=== PATIENT | female | born 1945 | race Caucasian/White ===

== ENCOUNTER 2020-01-03 09:21 | Outpatient (REF) | payer MEDICARE, OTHER, SELFPAY ==
[2020-01-03 11:53] LABS: Alanine Aminotransferase 22 U/L (0-31); Aspartate Amino Transferase 25 U/L (5-31); Cholesterol 250 mg/dL; HDL Cholesterol 74 mg/dL; LDL Cholesterol Calculated 166 mg/dl; Triglycerides 53 mg/dL
== END 2020-01-03 09:22 | disposition home or self-care (01) ==
LOC: HO.HMGCLDS 09:21
PROVIDERS: PCP Internal Medicine; Visit Provider Internal Medicine
DX: E78.5 Hyperlipidemia, unspecified (principal); M85.80 Other specified disorders of bone density and structure, unspecified site
CPT/HCPCS: 80061; 82550; 84450; 84460

== ENCOUNTER 2020-05-03 08:13 | Outpatient (REF) | payer MEDICARE, OTHER, SELFPAY ==
[2020-05-03 11:59] LABS: Alanine Aminotransferase 22 U/L (0-31); Aspartate Amino Transferase 26 U/L (5-31); Cholesterol 209 mg/dL; HDL Cholesterol 72 mg/dL; LDL Cholesterol Calculated 128 mg/dl; Triglycerides 45 mg/dL
== END 2020-05-03 08:14 | disposition home or self-care (01) ==
LOC: HO.HMGCLDS 08:13
PROVIDERS: PCP Internal Medicine; Visit Provider Internal Medicine
DX: E78.5 Hyperlipidemia, unspecified (principal)
CPT/HCPCS: 36415; 80061; 82550; 84450; 84460

== ENCOUNTER 2020-07-19 10:11 | Outpatient (REF) | payer MEDICARE, OTHER, SELFPAY ==
--- NOTE | ~2020-07-19 | MM_ITS ---
EXAMINATION: BONE DENSITOMETRY CLINICAL INDICATION: Other specified disorders of bone density and structure, unspecified site. COMPARISON: Baseline BD dated 01/30/2015. TECHNIQUE: Using a [employer] DXA System (software version: 13.1) manufactured by [employer], dual-energy x-ray absorptiometry was performed of the lumbar spine and left hip. The images are of good technical quality. Summary results are attached. FINDINGS: AP SPINE L1-L4: Current: BMD 1.200 g/cm2, Z-score 2.3, T-score 0.2, normal, 3.8% decrease from baseline (<5% change is not significant). Baseline: BMD 1.248 g/cm2. LEFT FEMUR, NECK: Current: BMD 0.714 g/cm2, Z-score -0.1, T-score -2.3, osteopenia. Baseline: BMD 0.728 g/cm2. LEFT FEMUR, TOTAL: Current: BMD 0.859 g/cm2, Z-score 0.9, T-score -1.2, osteopenia, 3.4% decrease from baseline (<5% change is not significant). Baseline: BMD 0.889 g/cm2. IDENTIFIED RISK FACTORS: Height loss, menopause. HISTORY OF FRACTURE: None listed. MEDICATIONS: Vitamin D. MM/XR DEXA axial skeleton IMPRESSION: 1. DIAGNOSIS: Osteopenia based on the lowest T-score value of -2.3 in the femoral neck applying World Health Organization criteria. 2. 10-YEAR FRACTURE RISK PREDICTION, FRAX: Major osteoporotic fracture (clinical spine, forearm, hip or shoulder) 15.2%. Hip fracture 4.7%. 3. Treatment Recommendations: NOF guidelines recommend consideration for treatment in postmenopausal women and men age 50 and older presenting with the following: -A hip or vertebral (clinical or morphometric) fracture. -T-score less than or equal to -2.5 at the femoral neck or spine after appropriate evaluation to exclude secondary causes. -Low bone mass at the hip or spine and a 10-year fracture probability by FRAX of greater than or equal to 3% for hip fracture or greater than or equal to 20% for major osteoporotic fracture based on the [place] adapted WHO algorithm. 4. Other Recommendations: All treatment decisions require clinical judgment and consideration of individual patient factors, including patient preferences, comorbidities, previous drug use, risk factors not captured in the FRAX model (e.g. frailty, falls, vitamin D deficiency, increased bone turnover, interval significant decline in bone density) and possible under or overestimation of fracture risk by FRAX. Additional medical evaluation for secondary cause of low bone mineral density may be appropriate. FUTURE SCAN RECOMMENDATION: People with diagnosed cases of osteoporosis or at high risk for fracture should have regular bone mineral density tests. For patients eligible for Medicare, routine testing is allowed once every 2 years. The testing frequency can be increased to one year for patients who have rapidly progressing disease, those who are receiving or discontinuing medical therapy to restore bone mass, or have additional risk factors.
--- NOTE | ~2020-07-19 | MM_ITS ---
EXAMINATION: MM SCREENING DIGITAL BREAST TOMOSYNTHESIS, BILATERAL CLINICAL INFORMATION: Screening. Asymptomatic. The lifetime risk of breast cancer based on the Tyrer-Cuzick Model is 5%. COMPARISON: Mammography: 05/11/2019, 03/01/2018, 04/28/2016 TECHNIQUE: Digital breast tomosynthesis is performed in both the craniocaudal and mediolateral oblique views along with computer-aided detection (CAD). Synthesized 2D images are generated from the tomosynthesis. Additional left MLO view is provided. FINDINGS: The breasts are heterogeneously dense, which may obscure small masses (ACR BI-RADS breast composition Category c). There are no significant masses, abnormal calcifications, or other abnormalities. Parenchymal pattern is similar to prior studies. No significant changes. MM/MM tomosynthesis screening BI IMPRESSION: No mammographic evidence of malignancy. ASSESSMENT: BI-RADS 1: Negative RECOMMENDATION: Routine annual mammography screening. This patient's information was entered into a reminder system with a target due date for their next mammogram.
== END 2020-07-19 10:12 | disposition home or self-care (01) ==
LOC: HO.MAMMO 10:11
PROVIDERS: PCP Internal Medicine; Visit Provider Internal Medicine
DX: Z13.820 Encounter for screening for osteoporosis (principal); Z78.0 Asymptomatic menopausal state; Z12.31 Encounter for screening mammogram for malignant neoplasm of breast
CPT/HCPCS: 77063; 77067; 77080

== ENCOUNTER 2021-01-01 08:31 | Outpatient (REF) | payer MEDICARE, OTHER, SELFPAY ==
[2021-01-01 11:47] LABS: Alanine Aminotransferase 23 U/L (0-31); Anion Gap 12 (12-20); Aspartate Amino Transferase 30 U/L (5-31); Blood Urea Nitrogen 13 mg/dL (9-16); Calcium 9.8 mg/dL (8.4-10.2); Carbon Dioxide 29 mmol/L (22-29); Chloride 103 mmol/L (96-108); Cholesterol 261 mg/dL; Estimated Glomerular Filt Rate 60; Glucose Fasting 109 mg/dL (60-99); HDL Cholesterol 66 mg/dL; LDL Cholesterol Calculated 182 mg/dl; Potassium 4.3 mmol/L (3.3-5.1); Sodium 140 mmol/L (135-145); Triglycerides 66 mg/dL
[2021-01-01 12:03] LABS: Vitamin D 25-OH Total 45.5 ng/mL (>30)
== END 2021-01-01 08:32 | disposition home or self-care (01) ==
LOC: HO.HMGCLDS 08:31
PROVIDERS: PCP Internal Medicine; Visit Provider Internal Medicine
DX: E78.5 Hyperlipidemia, unspecified (principal); M85.80 Other specified disorders of bone density and structure, unspecified site; I10 Essential (primary) hypertension
CPT/HCPCS: 36415; 80048; 80061; 82306; 84450; 84460

== ENCOUNTER 2021-04-09 09:15 | Outpatient (REF) | payer MEDICARE, OTHER, SELFPAY ==
[2021-04-09 11:46] LABS: Estimated Average Glucose 120 mg/dL; Hemoglobin A1C 149.8151 umol/L; Hemoglobin A1c % 5.8 %
[2021-04-09 12:20] LABS: Alanine Aminotransferase 21 U/L (0-31); Aspartate Amino Transferase 25 U/L (5-31); Cholesterol 308 mg/dL; Glucose Fasting 96 mg/dL (60-99); HDL Cholesterol 67 mg/dL; LDL Cholesterol Calculated 228 mg/dl; Triglycerides 67 mg/dL
== END 2021-04-09 09:16 | disposition home or self-care (01) ==
LOC: HO.HMGCLDS 09:15
PROVIDERS: Visit Provider Internal Medicine
DX: E78.5 Hyperlipidemia, unspecified (principal)
CPT/HCPCS: 36415; 80061; 82947; 83036; 84450; 84460

== ENCOUNTER 2021-07-11 09:52 | Outpatient (REF) | payer MEDICARE, OTHER, SELFPAY ==
[2021-07-11 12:31] LABS: Alanine Aminotransferase 46 U/L (0-31); Aspartate Amino Transferase 35 U/L (5-31); Cholesterol 158 mg/dL; HDL Cholesterol 56 mg/dL; LDL Cholesterol Calculated 88 mg/dl; Triglycerides 72 mg/dL
== END 2021-07-11 09:53 | disposition home or self-care (01) ==
LOC: HO.HMGCLDS 09:52
PROVIDERS: PCP Internal Medicine; Visit Provider Internal Medicine
DX: E78.5 Hyperlipidemia, unspecified (principal)
CPT/HCPCS: 36415; 80061; 82550; 84450; 84460

== ENCOUNTER 2021-07-25 10:05 | Outpatient (REF) | payer MEDICARE, OTHER, SELFPAY ==
--- NOTE | ~2021-07-25 | MM_ITS ---
EXAMINATION: MM SCREENING DIGITAL BREAST TOMOSYNTHESIS, BILATERAL CLINICAL INFORMATION: Screening. Asymptomatic. The lifetime risk of breast cancer based on the Tyrer-Cuzick Model is 5.1%. COMPARISON: Mammography: July 19, 2020 and studies dating back to January 19, 2014 TECHNIQUE: Digital breast tomosynthesis is performed in both the craniocaudal and mediolateral oblique views along with computer-aided detection (CAD). Synthesized 2D images are generated from the tomosynthesis. FINDINGS: The breasts are extremely dense, which lowers the sensitivity of mammography (ACR BI-RADS breast composition Category d). There are no significant masses, abnormal calcifications, or other abnormalities. MM/MM tomosynthesis screening BI IMPRESSION: There are no significant changes from prior study. ASSESSMENT: BI-RADS 1: Negative RECOMMENDATION: Routine annual mammography screening. This patient's information was entered into a reminder system with a target due date for their next mammogram.
== END 2021-07-25 10:06 | disposition home or self-care (01) ==
LOC: HO.MAMMO 10:05
PROVIDERS: PCP Internal Medicine; Visit Provider Internal Medicine
DX: Z12.31 Encounter for screening mammogram for malignant neoplasm of breast (principal)
CPT/HCPCS: 77063; 77067

== ENCOUNTER 2022-01-27 09:33 | Outpatient (REF) | payer MEDICARE, OTHER, SELFPAY ==
[2022-01-27 11:51] LABS: Alanine Aminotransferase 29 U/L (0-31); Aspartate Amino Transferase 32 U/L (5-31); Cholesterol 209 mg/dL; HDL Cholesterol 75 mg/dL; LDL Cholesterol Calculated 125 mg/dl; Triglycerides 45 mg/dL
== END 2022-01-27 09:34 | disposition home or self-care (01) ==
LOC: HO.LAB 09:33
PROVIDERS: PCP Internal Medicine; Visit Provider Internal Medicine
DX: E78.5 Hyperlipidemia, unspecified (principal)
CPT/HCPCS: 36415; 80061; 84450; 84460

== ENCOUNTER 2022-10-28 11:38 | Outpatient (AMB) | payer MEDICARE, OTHER, SELFPAY ==
--- NOTE | 2022-10-28 11:54 | A.OFFPC_ITS ---
Vital Signs 10/28/22 12:03 Height 5 ft Weight 125 lb BMI 24.4 BP 122/64 Blood Pressure Location Rt brachial Position Sitting Pulse 68 Pulse Source Pulse Oximeter Pulse Oximetry (%) 99 Intake Visit Reasons: 6 Month follow up: do mini mental Intake Note: Pt is here today for her 6 months f/u: Do mini mental Accompanied by: Daughter Allergies azithromycin Allergy (Unknown, Verified 06/10/23 02:43) rash erythromycin base [Erythromycin Base] Allergy (Unknown, Verified 06/10/23 02:43) RASH levofloxacin Allergy (Unknown, Verified 06/10/23 02:43) pruritis, achiness alprazolam [Xanax] Adverse Reaction (Unknown, Verified 06/10/23 02:43) ringing in ears red yeast rice Adverse Reaction (Unknown, Uncoded 06/10/23 02:43) muscle pain statins Adverse Reaction (Unknown, Uncoded 06/10/23 02:43) muscle pain Medication List - Last Reconciled 10/28/22 by Katiuska Vargas MD atorvastatin 10 mg PO BEDTIME cholecalciferol (vitamin D3) 50 mcg PO DAILY zinc 50 mg PO DAILY Tobacco use date assessed: 10/28/22 Fall risk assessment: No Falls in past year Last assessed Fall Risk: 10/28/22 Dental Screening Dental Screen Date: 10/28/22 Did you have a dental visit in the last 12 months?: Yes Did you have a dental problem in the last 6 months where you did not have access to dental care?: No Was dental information given to patient?: Patient has dentist HPI 6 Month follow up: do mini mental HPI Details 78-year-old lady with hyperlipidemia cur rently on atorvastatin 10 mg daily, here today for her follow-up. She is accompanied by her daughter, who is concerned that patient's mentation and memory seems to be declining. She finds her mother to be repetitive at times. Patient still drives, lives in her own home, and does all her household worker. [facility] Medical History Osteopenia after menopause Lyme disease Dyslipidemia Surgical History No pertinent past surgical history Family History Father Medical history non-contributory Mother Medical history non-contributory Social History Housing: Condominium Alcohol intake: never Patient Tobacco Use Status: Never used Tobacco e-Cigarette/Vaping Use: Never Used Current occupational status: retired Cognitive needs: No Hearing needs: No Vision needs: Yes Questionnaire PHQ-9 Over the last 2 weeks, how often have you been bothered by any of the following problems? 1. Little interest or pleasure in doing things: not at all 2. Feeling down, depressed, or hopeless: not at all 3. Trouble falling or staying asleep, or sleeping too much: not at all 4. Feeling tired or having little energy: not at all 5. Poor appetite or overeating: not at all 6. Feeling bad about yourself - or that you are a failure or have let yourself or your family down: not at all 7. Trouble concentrating on things, such as reading the newspaper or watching television: not at all 8. Moving or speaking so slowly that other people could have noticed. Or the opposite - being so fidgety or restless that you have been moving around a lot more than usual: several days 9. Thoughts that you would be better off or of hurting yourself in some way: not at all Total score: 1 Depression Screening Interpretation: Negative Source: Developed by Drs. Arthur Mallory, Morena Lopez, Chung Betancur and colleagues, with an educational quirino from [employer]. Thrive Questionnaire Date Thrive assessed: 10/28/22 I am a: Patient What is your living situation today?: I have a steady place to live Within the past 12 months, did the food you bought not last and you didn't have the money to get more?: Never true Within the past 12 months, did you worry whether your food would run out before you got money to buy more?: Never true Do you have trouble paying for medicines?: No Do you have trouble getting transportation to medical appointments?: No Do you have trouble paying your heating and electricity bill?: No Do you have trouble taking care of your child, family member or friend?: No Do you have trouble with day-to-day activities such as bathing, preparing meals, shopping, managing finances, etc.?: No Are you currently unemployed and looking for a job?: No Are you interested in more education?: No AUDIT C Alcohol Use Questionnaire (AUDIT-C) 1. How often do you have a drink containing alcohol?: Never Total Score: 0 MARINA-7 AMB Questionnaire MARINA-7 Date MARINA - 7 assessed: 10/28/22 Feeling nervous, anxious, or on edge: 1 = Several days Not being able to stop or control worryin = Several days Worrying too much about different things: 1 = Several days Trouble relaxin = Not at all Being so restless that it is hard to sit still: 0 = Not at all Becoming easily annoyed or irritable: 0 = Not at all Feeling afraid as if something awful might happen: 0 = Not at all Total MARINA-7 score (0-4 normal; 5-9 mild; 10-14 moderate; 15-21 severe): 3 Source: Developed by Drs. Arthur Mallory, Morena Lopez, Chung Betancur and colleagues, with an educational quirino from [employer]. MARINA-7 Assessment Billing MARINA-7 Assessment Tool: MARINA-7 Assessment 19118 Review of Systems Const Denies fatigue, Denies headache(s), Reports increased appetite, Denies lethargy, Denies malaise and Denies weakness ENT Denies headache(s) Card Denies chest pain, Denies irregular heart rhythm, Denies claudication and Denies dyspnea on exertion Resp Denies chest congestion, Denies cough and Denies dyspnea on exertion GI Reports no additional complaints Musc Denies back pain, Denies myalgias, Denies arthralgias, Denies muscle cramps, Denies muscle weakness, Denies numbness and Denies stiffness Neuro Denies Abnormal speech present, Reports behavioral changes, Denies confusion, Denies headache(s), Denies numbness, Denies seizure-like activity and Denies weakness Psych Reports behavioral changes and Denies confusion Endo Denies fatigue Vikram/Lymph Reports no additional complaints Aller/Immun Reports no additional complaints Physical exam (Primary Care) Vital Signs: Last Vital Signs Pulse 68 10/28/22 12:03 BP 122/64 10/28/22 12:03 Pulse Ox 99 10/28/22 12:03 BMI result Body Mass Index 24.4 Tobacco/Smoking Status: Tobacco use Status Tobacco use date assessed 10/28/22 10/28/22 12:07 Patient Tobacco Use Status Never used Tobacco 10/28/22 11:55 e-Cigarette/Vaping Use Never Used 10/28/22 11:55 Depression Screening Interpretation: Negative Thrive Assessment: Date of Thrive Assessment Date Thrive assessed 04/11/21 10/28/22 11:55 Const General: No confusion Orientation/consciousness: No confusion Limitations: no limitations Eyes General: appearance normal, both eyes and all related structures Pupils: Equal, round and reactive pupils present Neck Neck: Yes full ROM, Yes no lymphadenopathy and Yes supple Resp Effort & Inspection: normal respiratory effort and able to speak in complete sentences Auscultation: clear to auscultation bilaterally Cardio Rate: regular rate Rhythm: regular rhythm Heart sounds: S1 normal heart sound present and S2 normal heart sound present GI Palpation (GI): Soft to palpation, nontender and no masses Auscultation: normal bowel sounds Back/Spine/Pelvis Back: No back tenderness Skin General skin exam: no rashes or lesions noted Neuro General: No confusion Cranial nerves: Yes CN's II-XII intact bilaterally and Yes Equal, round and reactive pupils present Cognition (Neuro): normal cognition Speech: No Abnormal speech present Extrem General: Yes full ROM, Yes no joint enlargement, Yes no clubbing, cyanosis or edema and Yes no calf tenderness Psych Appearance: grossly normal and well kempt Mental Status: mental status grossly normal Speech and movement: Psychomotor agitation in speech present Affect: normal affect Attitude: cooperative Thought process: Normal thought process present Results Reviewed Results Reviewed: Scored 29/30 in MMSE done on this visit, copy of results in chart Assessment and Plan Assessment & Plan (1) Dyslipidemia: Code(s): E78.5 - Hyperlipidemia, unspecified Plan: Fasting lipid panel ordered today, in the meantime continue with atorvastatin 10 mg daily in addition to following a low-cholesterol diet and getting regular exercise. (2) Osteopenia after menopause: Code(s): M85.80 - Other specified disorders of bone density and structure, unspecified site Plan: Reinforced importance of doing regular weight-bearing exercise in addition to taking adequate calcium from dietary sources and continue to take vitamin-D 3 at least 2000 units daily. Repear vitamin-D level ordered Orders: Orders Alanine Aminotransferase 10/28/22 E78.5 - Hyperlipidemia, unspecified, M85.80 - Other specified disorders of bone density and structure, unspecified site Aspartate Amino Transferase 10/28/22 E78.5 - Hyperlipidemia, unspecified, M85.80 - Other specified disorders of bone density and structure, unspecified site Vitamin D 25-OH Total 10/28/22 E78.5 - Hyperlipidemia, unspecified, M85.80 - Other specified disorders of bone density and structure, unspecified site Lipid Panel 10/28/22 E78.5 - Hyperlipidemia, unspecified, M85.80 - Other specified disorders of bone density and structure, unspecified site Medications: Refilled atorvastatin 10 mg PO BEDTIME 90 tabs 3RF Coding Level of Care Code Est Pt Level 4 (96910) Diagnoses Dyslipidemia E78.5 Osteopenia after menopause M85.80 Additional Codes MARINA-7 Assessment Billing - MARINA-7 Assessment Tool: MARINA-7 Assessment 71225 ([id number])
[2022-10-28 12:03] VITALS: BP 122/64; PULSE 68; O2SAT 99; BMI 24.4
== END 2022-10-28 14:36 | disposition home or self-care (01) ==
PROVIDERS: PCP Internal Medicine; Visit Provider Internal Medicine
DX: E78.5 Hyperlipidemia, unspecified (principal); M85.80 Other specified disorders of bone density and structure, unspecified site
CPT/HCPCS: 99214

== ENCOUNTER 2022-11-04 08:39 | Outpatient (REF) | payer MEDICARE, OTHER, SELFPAY ==
--- NOTE | ~2022-11-04 | MM_ITS ---
EXAMINATION: MM SCREENING DIGITAL BREAST TOMOSYNTHESIS, BILATERAL CLINICAL INFORMATION: Screening. Asymptomatic. COMPARISON: Mammography: 07/25/2021, 07/19/2020, 05/11/2019, and dating back to 2013. TECHNIQUE: Digital breast tomosynthesis is performed in both the craniocaudal and mediolateral oblique views along with computer-aided detection (CAD). Synthesized 2D images are generated from the tomosynthesis. FINDINGS: The breasts are extremely dense, which lowers the sensitivity of mammography (ACR BI-RADS breast composition Category d). There are a few scattered benign dermal calcifications. In the left breast, upper quadrant, there is a 1 view MLO asymmetry without definite correlate on the CC projection although suspected laterally, likely hidden among extremely dense breast tissue. Recommend diagnostic views to include 3-D spot compression CC and MLO views, as well as a 3-D full-field mediolateral view. There are no suspicious findings in the right breast. MM/MM tomosynthesis screening BI IMPRESSION: Left breast one view MLO asymmetry superior aspect without definite correlate as detailed. Recommend diagnostic views as described above. Ultrasound should also be scheduled at the discretion of the reading radiologist. ASSESSMENT: BI-RADS BI-RADS 0 - Incomplete: Needs additional Imaging. RECOMMENDATION: 1. Additional views of the left breast. 2. Targeted ultrasound if warranted after review of the additional views. 3. Radiology department staff will contact the patient for additional imaging. Additional Imaging required This examination should not preclude the clinical evaluation of a suspicious palpable abnormality. This patient's information was entered into a reminder system with a target due date for their next mammogram.
== END 2022-11-04 08:40 | disposition home or self-care (01) ==
LOC: HO.MAMMO 08:39
PROVIDERS: PCP Internal Medicine; Visit Provider Internal Medicine
DX: Z12.31 Encounter for screening mammogram for malignant neoplasm of breast (principal)
CPT/HCPCS: 77063; 77067

== ENCOUNTER → 2022-11-04 09:30 | Outpatient (BNV) | payer MEDICARE, OTHER, SELFPAY | PROVIDERS: PCP Internal Medicine; Visit Provider Radiology Diagnostic Radiology | DX: Z12.31 Encounter for screening mammogram for malignant neoplasm of breast (principal) | CPT/HCPCS: 77063; 77067 ==

== ENCOUNTER 2022-11-24 09:56 | Outpatient (REF) | payer MEDICARE, OTHER, SELFPAY ==
[2022-11-24 13:44] LABS: Alanine Aminotransferase 13 U/L (0-31); Aspartate Amino Transferase 20 U/L (5-31); Cholesterol 171 mg/dL (<200); HDL Cholesterol 59 mg/dL (>40); LDL Cholesterol Calculated 102 mg/dL (<100); Triglycerides 53 mg/dL (<150)
[2022-11-24 13:59] LABS: Vitamin D 25-OH Total 79.7 ng/mL (>30)
== END 2022-11-24 09:57 | disposition home or self-care (01) ==
LOC: HO.HMGCLDS 09:56
PROVIDERS: PCP Internal Medicine; Visit Provider Internal Medicine
DX: Z13.89 Encounter for screening for other disorder (principal)
CPT/HCPCS: 36415; 80061; 82306; 84450; 84460

== ENCOUNTER 2022-11-24 12:55 | Outpatient (REF) | payer MEDICARE, OTHER, SELFPAY ==
--- NOTE | ~2022-11-24 | MM_ITS ---
EXAMINATION: MM DIAGNOSTIC DIGITAL BREAST TOMOSYNTHESIS, LEFT CLINICAL INFORMATION: Follow-up diagnostic for one view asymmetry seen superior left breast on MLO view only. COMPARISON: Mammography: 11/04/2022, 07/25/2021, and dating back to 2016. TECHNIQUE: Digital breast tomosynthesis is performed. 2D images are generated from the tomosynthesis. The following views are obtained: Full-field 3-D left mediolateral view, 3-D spot compression left MLO and left CC views. FINDINGS: The breasts are almost entirely fatty (ACR BI-RADS breast composition Category a). Additional views demonstrate no persistent mass, architectural abnormality, or suspicious calcifications. The one view asymmetry previously seen is consistent with summation artifact of overlapping normal dense breast tissues. There are no findings suspicious for malignancy. MM/MM tomosynthesis added views L IMPRESSION: No mammographic evidence of malignancy. No persistent abnormalities. Recommend the patient resume routine annual screening. ASSESSMENT: BI-RADS BI-RADS 1 - Negative RECOMMENDATION: 1 year F/U Results were discussed with the patient at time of visit. This patient's information was entered into a reminder system with a target due date for their next mammogram.
== END 2022-11-24 12:56 | disposition home or self-care (01) ==
LOC: HO.MAMMO 12:55
PROVIDERS: PCP Internal Medicine; Visit Provider Internal Medicine
DX: N64.89 Other specified disorders of breast (principal); E78.5 Hyperlipidemia, unspecified; M85.80 Other specified disorders of bone density and structure, unspecified site
CPT/HCPCS: 36415; 77061; 77065; 80061; 82306; 84450; 84460

== ENCOUNTER 2023-04-29 11:34 | Outpatient (AMB) | payer MEDICARE, OTHER, SELFPAY ==
--- NOTE | 2023-04-29 11:44 | A.OFFPC_ITS ---
Vital Signs 04/29/23 11:45 Height 5 ft Weight 111 lb BMI 21.7 BP 122/70 Blood Pressure Location Rt brachial Position Sitting Pulse 68 Pulse Source Pulse Oximeter Pulse Oximetry (%) 98 Oxygen Delivery Method Room Air Intake Visit Reasons: Annual PE Intake Note: Pt is here today for PE. Last mammogram 11/24/22, bone density scan 07/19/20 Allergies azithromycin Allergy (Unknown, Verified 06/10/23 02:43) rash erythromycin base [Erythromycin Base] Allergy (Unknown, Verified 06/10/23 02:43) RASH levofloxacin Allergy (Unknown, Verified 06/10/23 02:43) pruritis, achiness alprazolam [Xanax] Adverse Reaction (Unknown, Verified 06/10/23 02:43) ringing in ears red yeast rice Adverse Reaction (Unknown, Uncoded 06/10/23 02:43) muscle pain statins Adverse Reaction (Unknown, Uncoded 06/10/23 02:43) muscle pain Medication List - Last Reconciled 06/11/23 by Katiuska Vargas MD atorvastatin 10 mg PO BEDTIME cholecalciferol (vitamin D3) 50 mcg PO DAILY zinc 50 mg PO DAILY Tobacco use date assessed: 04/29/23 HPI Annual PE HPI Details 78-year-old lady here today for physical exam. She has hyperlipidemia and osteopenia, currently taking atorvastatin 10 mg at bedtime and takes vitamin-D 3 supplements. Her last bone density scan was done 07/19/2020 which s howed presence of normal bone density in lumbar spine but presence of osteopenia in left femoral neck and left femur, unchanged from previous test. No history of fractures. Last mammogram was done October 2022, with normal findings. She is up-to-date with all her vaccines, but unsure whether she received her 2nd dose of shingles vaccine, will check with her pharmacist peer [facility] Medical History Osteopenia after menopause Lyme disease Dyslipidemia Surgical History No pertinent past surgical history Family History Father Medical history non-contributory Mother Medical history non-contributory Social History Housing: Condominium Alcohol intake: never Patient Tobacco Use Status: Never used Tobacco e-Cigarette/Vaping Use: Never Used Current occupational status: retired Cognitive needs: No Hearing needs: No Vision needs: Yes Questionnaire PHQ-9 Over the last 2 weeks, how often have you been bothered by any of the following problems? 1. Little interest or pleasure in doing things: not at all 2. Feeling down, depressed, or hopeless: not at all 3. Trouble falling or staying asleep, or sleeping too much: several days 4. Feeling tired or having little energy: not at all 5. Poor appetite or overeating: not at all 6. Feeling bad about yourself - or that you are a failure or have let yourself or your family down: not at all 7. Trouble concentrating on things, such as reading the newspaper or watching television: not at all 8. Moving or speaking so slowly that other people could have noticed. Or the opposite - being so fidgety or restless that you have been moving around a lot more than usual: several days 9. Thoughts that you would be better off or of hurting yourself in some way: not at all Total score: 2 Depression Screening Interpretation: Negative Depression Screening Done: Yes 55820 - PHQ-9 Billing: Yes Source: Developed by Drs. Arthur Mallory, Morena Lopez, Chung Betancur and colleagues, with an educational quirino from [employer]. Thrive Questionnaire Date Thrive assessed: 04/29/23 I am a: Patient What is your living situation today?: I have a steady place to live Within the past 12 months, did the food you bought not last and you didn't have the money to get more?: Never true Within the past 12 months, did you worry whether your food would run out before you got money to buy more?: Never true Do you have trouble paying for medicines?: No Do you have trouble getting transportation to medical appointments?: No Do you have trouble paying your heating and electricity bill?: No Do you have trouble taking care of your child, family member or friend?: No Do you have trouble with day-to-day activities such as bathing, preparing meals, shopping, managing finances, etc.?: No Are you currently unemployed and looking for a job?: No Are you interested in more education?: No THRIVE Score: 0 AUDIT C Alcohol Use Questionnaire (AUDIT-C) 1. How often do you have a drink containing alcohol?: Never Total Score: 0 MARINA-7 AMB Questionnaire MARINA-7 Date MARINA - 7 assessed: 04/29/23 Feeling nervous, anxious, or on edge: 1 = Several days Not being able to stop or control worryin = Several days Worrying too much about different things: 0 = Not at all Trouble relaxin = Not at all Being so restless that it is hard to sit still: 0 = Not at all Becoming easily annoyed or irritable: 0 = Not at all Feeling afraid as if something awful might happen: 0 = Not at all Total MARINA-7 score (0-4 normal; 5-9 mild; 10-14 moderate; 15-21 severe): 2 Source: Developed by Drs. Arthur Mallory, Morena Lopez, Chung Betancur and colleagues, with an educational quirino from [employer]. MARINA-7 Assessment Billing MARINA-7 Assessment Tool: MARINA-7 Assessment 39686 Review of Systems Const Denies fatigue, Denies headache(s), Denies malaise and Denies weakness Eyes Denies change in vision ENT Denies headache(s) and Reports hearing loss (Both ears) Card Denies chest pain, Denies irregular heart rhythm, Denies claudication and Denies dyspnea on exertion Resp Denies chest congestion, Denies cough and Denies dyspnea on exertion GI Reports no additional complaints Reports no additional complaints Musc Denies back pain, Denies myalgias, Denies arthralgias, Denies muscle cramps, Denies muscle weakness, Denies numbness and Denies stiffness Skin/Breast Denies breast swelling, Denies breast pain, Denies breast mass and Denies new lesions Neuro Denies Abnormal speech present, Denies confusion, Denies headache(s), Denies numbness, Denies seizure-like activity and Denies weakness Psych Denies confusion Endo Denies fatigue Vikram/Lymph Reports no additional complaints Aller/Immun Reports no additional complaints Physical exam (Primary Care) Vital Signs: Last Vital Signs Pulse 68 02/28/24 11:45 BP 122/70 04/29/23 11:45 Pulse Ox 98 04/29/23 11:45 Oxygen Delivery Method Room Air 04/29/23 11:45 BMI result Body Mass Index 21.7 Tobacco/Smoking Status: Tobacco use Status Tobacco use date assessed 04/29/23 04/29/23 11:55 Patient Tobacco Use Status Never used Tobacco 04/29/23 11:45 e-Cigarette/Vaping Use Never Used 04/29/23 11:45 PHQ-9: PHQ-9 Score PHQ-9: Total score 9 06/11/23 01:30 Depression Screening Interpretation: Negative Thrive Assessment: Date of Thrive Assessment Date Thrive assessed 04/29/23 04/29/23 12:53 Const General: No confusion Orientation/consciousness: No confusion HENMT Head: Yes normocephalic Ears: external ears normal, TM's normal bilaterally and EAC's normal General nose exam: Normal external nose present Face and sinus: Yes face symmetric Mouth: Normal oral and palatal mucosa present, oropharynx normal and moist mucous membranes Eyes General: appearance normal, both eyes and all related structures Neck Neck: Yes full ROM, Yes no lymphadenopathy and Yes supple Chest Breast/axilla palpation: normal palpation of the breasts Resp Effort & Inspection: normal respiratory effort and able to speak in complete sentences Auscultation: clear to auscultation bilaterally Cardio Rate: regular rate Rhythm: regular rhythm Heart sounds: S1 normal heart sound present and S2 normal heart sound present GI Palpation (GI): Soft to palpation, nontender and no masses Auscultation: normal bowel sounds Back/Spine/Pelvis Back: No back tenderness Skin General skin exam: no rashes or lesions noted Neuro General: No confusion Cranial nerves: Yes CN's II-XII intact bilaterally Cognition (Neuro): normal cognition Speech: No Abnormal speech present Extrem General: Yes full ROM, Yes no joint enlargement, Yes no clubbing, cyanosis or edema and Yes no calf tenderness Psych Appearance: grossly normal and well kempt Mental Status: mental status grossly normal Speech and movement: Psychomotor agitation in speech present Affect: normal affect Immunizations pneumoc 20-elvira conj-dip cr(PF) 0.5 mL IM syringe Performing Provider: Katiuska Vargas MD Performing Location: [facility] Administered by: Cathy Astudillo CMA on 04/29/23 13:00 Dose Route Admin Location Dispensed Lot Number Expiration Date [employer] 0.5 mL IM Left Deltoid 0.5 mL [id number] 04/29/24 4717-1631-46 [employer] VIS Given Date VIS Provided VIS Publication Date 04/29/23 Single Vaccine 21 Eligibility Eligibility Date Funding Source Not [facility] Eligible 04/29/23 Private Assessment and Plan Assessment & Plan (1) Annual visit for general adult medical examination with abnormal findings: Code(s): Z00.01 - Encounter for general adult medical examination with abnormal findings Plan: Will check appropriate labs. Continue with regular dental visit every 6 months and regular eye exams, at least every 2 years. Take adequate calcium in diet and vitamin-D 3 at 2000 IU per cap once a day, in addition to weight-bearing exercises to help maintain good muscle tone and weight control. Instructed to do self-breast exam, and recommended to get yearly mammogram, declines getting bone density scan. Has last bone density scan was in 2020. Up-to-date with vaccine, Prevnar 20 given today (2) Dyslipidemia: Code(s): E78.5 - Hyperlipidemia, unspecified Plan: Fasting lipid panel ordered. Continued on atorvastatin 10 mg daily, in addition to adherence to healthy eating habits and regular exercise. (3) Osteopenia after menopause: Code(s): M85.80 - Other specified disorders of bone density and structure, unspecified site Plan: Ordered basic metabolic panel, vitamin-D level,. Encouraged to do regular weight-bearing exercise, take adequate calcium from dietary sources and vitamin- D 3 at least 2000 units daily, which she is already taking. Declines getting DEXA scan (4) Hearing impaired: Code(s): H91.90 - Unspecified hearing loss, unspecified ear Qualifiers: Hearing loss type: unspecified Laterality: bilateral Qualified Code(s): H91.93 - Unspecified hearing loss, bilateral Plan: Referred to speech and hearing [place] for further evaluation Orders: Orders Basic Metabolic Panel Fasting 04/29/23 E78.5 - Hyperlipidemia, unspecified, M85.80 - Other specified disorders of bone density and structure, unspecified site Aspartate Amino Transferase 04/29/23 E78.5 - Hyperlipidemia, unspecified, M85.80 - Other specified disorders of bone density and structure, unspecified site Lipid Panel 04/29/23 E78.5 - Hyperlipidemia, unspecified, M85.80 - Other specified disorders of bone density and structure, unspecified site Alanine Aminotransferase 04/29/23 E78.5 - Hyperlipidemia, unspecified, M85.80 - Other specified disorders of bone density and structure, unspecified site Vitamin D 25-OH Total 04/29/23 E78.5 - Hyperlipidemia, unspecified, M85.80 - Other specified disorders of bone density and structure, unspecified site Pneumococcal 20 Immunization 04/29/23 Z23 - Encounter for immunization Referrals Speech and Hearing Referral H91.90 - Unspecified hearing loss, unspecified ear Medications: Refilled atorvastatin 10 mg PO BEDTIME 90 tabs 4RF Coding Level of Care Code Est Pt Prev Care >65y(92156) Diagnoses Annual visit for general adult medical examination with abnormal findings Z00.01 Dyslipidemia E78.5 Osteopenia after menopause M85.80 Bilateral hearing loss, unspecified hearing loss type H91.93 Hearing loss type: unspecified Laterality: bilateral Additional Codes MARINA-7 Assessment Billing - MARINA-7 Assessment Tool: MARINA-7 Assessment 54541 ([id number])
[2023-04-29 11:45] VITALS: BP 122/70; PULSE 68; O2SAT 98; BMI 21.7
== END 2023-04-29 14:45 | disposition home or self-care (01) ==
PROVIDERS: PCP Internal Medicine; Visit Provider Internal Medicine
DX: Z00.00 Encounter for general adult medical examination without abnormal findings (principal); E78.5 Hyperlipidemia, unspecified; M85.80 Other specified disorders of bone density and structure, unspecified site; Z23 Encounter for immunization; H91.93 Unspecified hearing loss, bilateral
CPT/HCPCS: 90471; 90677; 99214; 99397

== ENCOUNTER 2023-07-28 12:52 | Outpatient (REF) | payer MEDICARE, OTHER, SELFPAY ==
--- NOTE | ~2023-07-28 | MM_ITS ---
EXAMINATION: BONE DENSITOMETRY CLINICAL INDICATION: Other specified disorders of bone density and structure, unspecified site. COMPARISON: Previous BD dated 07/19/2020 and baseline BD dated 01/30/2015. TECHNIQUE: Using a [employer] DXA System (software version: 13.1) manufactured by [employer], dual-energy x-ray absorptiometry was performed of the lumbar spine and left hip. The images are of good technical quality. Summary results are attached. FINDINGS: AP SPINE L1-L3 (excluding L4): The data of L1-L4 has been changed to exclude the L4 vertebral body, because degenerative sclerosis at this level may cause overestimation of lumbar spine density. Current: BMD 1.094 g/cm2, Z-score 1.6, T-score -0.6, normal, 3.2% decrease from previous, 8.6% decrease from baseline (<5% change is not significant). Prior: BMD 1.130 g/cm2. Baseline: BMD 1.197 g/cm2. LEFT FEMUR, NECK: Current: BMD 0.659 g/cm2, Z-score -0.4, T-score -2.7, osteoporosis. Prior: BMD 0.714 g/cm2. Baseline: BMD 0.728 g/cm2. LEFT FEMUR, TOTAL: Current: BMD 0.806 g/cm2, Z-score 0.6, T-score -1.6, osteopenia, 6.2% decrease from previous, 9.3% decrease from baseline (<5% change is not significant). Prior: BMD 0.859 g/cm2. Baseline: BMD 0.889 g/cm2. IDENTIFIED RISK FACTORS: Menopause. HISTORY OF FRACTURE: None listed. MEDICATIONS: Calcium supplement and/or multivitamin. Vitamin D. MM/XR DEXA axial skeleton IMPRESSION: 1. DIAGNOSIS: Osteoporosis based on the lowest T-score value of -2.7 in the femoral neck applying World Health Organization criteria. 2. 10-YEAR FRACTURE RISK PREDICTION, FRAX: According to the guidelines, FRAX calculation should only be performed on patients in the osteopenia bone density category.?Therefore, FRAX was not performed on this patient.? 3. Treatment Recommendations: NOF guidelines recommend consideration for treatment in postmenopausal women and men age 50 and older presenting with the following: -A hip or vertebral (clinical or morphometric) fracture. -T-score less than or equal to -2.5 at the femoral neck or spine after appropriate evaluation to exclude secondary causes. -Low bone mass at the hip or spine and a 10-year fracture probability by FRAX of greater than or equal to 3% for hip fracture or greater than or equal to 20% for major osteoporotic fracture based on the [place] adapted WHO algorithm. 4. Other Recommendations: All treatment decisions require clinical judgment and consideration of individual patient factors, including patient preferences, comorbidities, previous drug use, risk factors not captured in the FRAX model (e.g. frailty, falls, vitamin D deficiency, increased bone turnover, interval significant decline in bone density) and possible under or overestimation of fracture risk by FRAX. Additional medical evaluation for secondary cause of low bone mineral density may be appropriate. FUTURE SCAN RECOMMENDATION: People with diagnosed cases of osteoporosis or at high risk for fracture should have regular bone mineral density tests. For patients eligible for Medicare, routine testing is allowed once every 2 years. The testing frequency can be increased to one year for patients who have rapidly progressing disease, those who are receiving or discontinuing medical therapy to restore bone mass, or have additional risk factors.
== END 2023-07-28 12:53 | disposition home or self-care (01) ==
LOC: HO.MAMMO 12:52
PROVIDERS: PCP Internal Medicine; Visit Provider Internal Medicine
DX: Z13.820 Encounter for screening for osteoporosis (principal); Z78.0 Asymptomatic menopausal state; M85.80 Other specified disorders of bone density and structure, unspecified site
CPT/HCPCS: 77080

== ENCOUNTER 2023-12-25 09:28 | Outpatient (REF) | payer MEDICARE, OTHER, SELFPAY ==
--- NOTE | ~2023-12-25 | MM_ITS ---
EXAMINATION: MM SCREENING DIGITAL BREAST TOMOSYNTHESIS, BILATERAL CLINICAL INFORMATION: Screening. Asymptomatic. COMPARISON: Mammography: Comparison is made with available priors TECHNIQUE: Digital breast mammography with tomosynthesis is performed in both the craniocaudal and mediolateral oblique views along with computer-aided detection (CAD). FINDINGS: The breasts are heterogeneously dense, which may obscure small masses (ACR BI-RADS breast composition Category c). There are no significant masses, abnormal calcifications, or other abnormalities. MM/MM tomosynthesis screening BI IMPRESSION: No mammographic evidence of malignancy. ASSESSMENT: BI-RADS BI-RADS 1 - Negative RECOMMENDATION: Routine annual mammography screening. 1 year F/U This examination should not preclude the clinical evaluation of a suspicious palpable abnormality. This patient's information was entered into a reminder system with a target due date for their next mammogram. Electronically signed by: Roberta Neri DO 01/05/2024 08:47 AM [place]
== END 2023-12-25 09:29 | disposition home or self-care (01) ==
LOC: HO.MAMMO 09:28
PROVIDERS: PCP Internal Medicine; Visit Provider Internal Medicine
DX: Z12.31 Encounter for screening mammogram for malignant neoplasm of breast (principal)
CPT/HCPCS: 77063; 77067

== ENCOUNTER → 2023-12-25 09:33 | Outpatient (BNV) | payer MEDICARE, OTHER, SELFPAY | PROVIDERS: PCP Internal Medicine; Visit Provider Internal Medicine | DX: Z12.31 Encounter for screening mammogram for malignant neoplasm of breast (principal) | CPT/HCPCS: 77063; 77067 ==